=== PATIENT | female | born 1980 | race African-American/Black ===

== ENCOUNTER 2017-11-14 22:08 | Emergency (ER) | payer SELFPAY ==
[~2017-11-14] VITALS: Ht 170.2 cm; Wt 91.9 kg
[~2017-11-14 22:08] MED LIST: ULTRAM50 MG PO
[2017-11-14 23:16] LABS: BASOPHIL (%) 0.7 % (0-1); EOSINOPHIL (%) 0.2 % (0-5); HEMATOCRIT 40.8 % (36.0-46.0); HEMOGLOBIN 14.2 G/DL (11.9-15.5); IMMATURE GRANULOCYTE (%) 0.4 % (0.0-0.7); LYMPHOCYTE (%) 48.7 % (15-42); LYMPHOCYTE COUNT 2.7 K/uL (1.0-2.8); MCHC 34.8 G/DL (30.0-36.0); MCV 83.3 FL (83-99); MONOCYTE COUNT 0.6 K/uL (0-0.8); NEUTROPHIL COUNT 2.3 K/uL (1.8-6.4); PLATELET COUNT 272 K/uL (156-360); RBC DIS.WIDTH-CV 13.2 % (11.8-14.6); RBC DIS.WIDTH-SD 40.1 % (39-53); WHITE BLOOD COUNT 5.6 K/uL (4.1-10.2)
[2017-11-14 23:22] LABS: ALBUMIN 4.4 g/dL (3.2-4.8); CHLORIDE 106 mEq/L (99-109); SODIUM 139 mEq/L (136-147)
[2017-11-14 23:24] LABS: GLUCOSE 91 mg/dL (70-99); TOTAL PROTEIN 7.7 g/dL (6.4-8.3)
[2017-11-14 23:26] LABS: TOTAL BILIRUBIN 0.6 mg/dL (0.0-1.0)
[2017-11-14 23:27] LABS: APPEARANCE CLEAR ((CLEAR)); BILIRUBIN NEGATIVE; BLOOD SMALL; COLOR STRAW ((YELLOW)); GLUCOSE (STRIP) NEGATIVE; KETONES NEGATIVE; LEUKOCYTES NEGATIVE; NITRITE NEGATIVE; PROTEIN (STRIP) NEGATIVE; SPECIFIC GRAVITY 1.003 (1.000-1.030); UROBILINOGEN 0.2 MG/DL (0.2-1.0)
[2017-11-14 23:28] LABS: ALKALINE PHOSPHATASE 115 IU/L (3-129); CREATININE 0.8 mg/dL (0.6-1.3); GFR ESTIMATE (CALCULATED) > 59 mL/min/
[2017-11-14 23:29] LABS: UREA NITROGEN (BUN) 6 mg/dL (9-23)
[2017-11-14 23:30] LABS: AST (GOT) 13 IU/L (2-34)
[2017-11-14 23:31] LABS: ALT (GPT) 17 IU/L (3-49); LIPASE 34 U/L (1.0-51.0)
[2017-11-14 23:37] LABS: BACTERIA 3+ /HPF; EPITHELIAL CELLS 2+ /HPF; MUCUS NONE SEEN /LPF; RED BLOOD CELLS 0-5 /HPF (0-5); WHITE BLOOD CELLS 0-5 /HPF (0-5)
[2017-11-14 23:45] LABS: QUANTITATIVE HCG < 4.0 MIU/ML
[2017-11-15] MEDS ORDERED: MIRALAX255 GM PO (00:49)
[2017-11-15 01:00] VITALS: BP 132/68
== END 2017-11-15 01:01 | disposition home or self-care (01) ==
LOC: EME 22:08
PROVIDERS: Emergency Medicine
DX: K59.00 Constipation, unspecified (principal); Z90.711 Acquired absence of uterus with remaining cervical stump
CPT/HCPCS: 74018; 80053; 81003; 83690; 84443; 84702; 85025; 99281; 99284